=== PATIENT | female | born 1960 | race Two or more races ===

== ENCOUNTER 2017-10-29 17:07 | Outpatient (CLI) | payer OTHER ==
[~2017-10-29 17:07] MED LIST: AMLODIPINE BESYL5 MG PO; CATAFLAM50 MG PO; COZAAR100 MG PO; Cozaar PO; GILTUSS TR TAB1 EACH PO; GLIMEPIRIDE2 MG PO; GLIMEPIRIDE4 MG; GLIMEPIRIDE4 MG PO; HUMULIN 70/30 V10 ML SQ; HUMULIN 70100 UNIT/2 SUBCUTANEO; IBUPROFEN800 MG PO; METFORMIN HCL1000 MG PO; METFORMIN HCL850 MG; Mylicon 125MG PO; NORVASC PO; NeurRONTin 400MG CAP PO; SEPTRA DS TABLE1 TAB; SYNTHROID75 MCG; SYNTHROID75 MCG PO; Synthroid PO; TESSALON PERLE100 MG PO; ZITHROMAX500 MG PO; ZOCOR40 MG; ZOCOR40 MG PO
== END 2017-10-29 18:00 | disposition home or self-care (01) ==
LOC: PPHC 17:07
DX: C54.1 Malignant neoplasm of endometrium (principal)

== ENCOUNTER 2017-12-18 08:25 | Emergency (ER) | payer OTHER ==
[~2017-12-18] VITALS: Ht 160 cm; Wt 76.2 kg
== END 2017-12-18 12:42 | disposition home or self-care (01) ==
LOC: ER 08:25
DX: J11.1 Influenza due to unidentified influenza virus with other respiratory manifestations (principal)

== ENCOUNTER 2018-03-29 06:25 | Outpatient (CLI) | payer OTHER | END 2018-03-29 06:44 | disposition home or self-care (01) | LOC: LAB 06:25 | DX: C54.1 Malignant neoplasm of endometrium (principal); I10 Essential (primary) hypertension; E03.8 Other specified hypothyroidism; E11.9 Type 2 diabetes mellitus without complications ==

== ENCOUNTER 2018-06-07 08:21 | Outpatient (CLI) | payer OTHER | END 2018-06-07 08:30 | disposition home or self-care (01) | LOC: LAB 08:21 | DX: C54.1 Malignant neoplasm of endometrium (principal); Z51.81 Encounter for therapeutic drug level monitoring ==

== ENCOUNTER 2018-06-07 09:15 | Outpatient (CLI) | payer OTHER | END 2018-06-07 16:09 | disposition home or self-care (01) | LOC: TOM 09:15 | DX: C54.1 Malignant neoplasm of endometrium (principal) ==

== ENCOUNTER 2018-08-05 08:06 | Outpatient (CLI) | payer OTHER | END 2018-08-05 08:23 | disposition home or self-care (01) | LOC: MAMO-SONO 08:06 | DX: Z12.31 Encounter for screening mammogram for malignant neoplasm of breast (principal); N64.59 Other signs and symptoms in breast; N64.89 Other specified disorders of breast ==

== ENCOUNTER → 2019-09-09 07:10 | Outpatient (CLI) | payer OTHER | END | disposition home or self-care (01) | LOC: LAB 07:10 | DX: R10.84 Generalized abdominal pain (principal); E78.49 Other hyperlipidemia; E11.9 Type 2 diabetes mellitus without complications; Z00.00 Encounter for general adult medical examination without abnormal findings; E55.9 Vitamin D deficiency, unspecified; E03.8 Other specified hypothyroidism ==

== ENCOUNTER → 2021-05-01 13:19 | Outpatient (CLI) | payer OTHER | END | disposition home or self-care (01) | LOC: NUCLEAR 13:00 → EDBD 13:19 → NUCLEAR 13:19 | PROVIDERS: ATTEND Internal Medicine Cardiovascular Disease | DX: M81.0 Age-related osteoporosis without current pathological fracture (principal); E55.9 Vitamin D deficiency, unspecified ==

== ENCOUNTER 2022-08-17 12:39 | Outpatient (CLI) | payer OTHER ==
[~2022-08-17 12:39] MED LIST changes: +AMLODIPINE-OLM1 EAC1; +CAPSAICIN42.5 GM TOP; +CIPRO500 MG PO; +COZAAR25 MG; +COZAAR50 MG; +GLIPIZIDE ER5 MG PO; +METFORMIN HCL1000 M2 PO; +NOVOLIN 70100 UNIT/2; +PLAVIX75 MG PO; +ZOVIRAX800 MG PO
== END 2022-08-17 12:44 | disposition home or self-care (01) ==
LOC: NUCLEAR 12:39
PROVIDERS: ATTEND Internal Medicine Endocrinology, Diabetes & Metabolism
DX: Z13.820 Encounter for screening for osteoporosis (principal); M85.89 Other specified disorders of bone density and structure, multiple sites

== ENCOUNTER 2022-08-21 08:37 | Outpatient (CLI) | payer OTHER | END 2022-08-21 08:38 | disposition home or self-care (01) | LOC: LAB 08:37 | PROVIDERS: ATTEND Internal Medicine Endocrinology, Diabetes & Metabolism | DX: D64.9 Anemia, unspecified (principal); E03.8 Other specified hypothyroidism; E06.3 Autoimmune thyroiditis; E78.2 Mixed hyperlipidemia; M85.89 Other specified disorders of bone density and structure, multiple sites; M81.0 Age-related osteoporosis without current pathological fracture; E55.9 Vitamin D deficiency, unspecified; E11.65 Type 2 diabetes mellitus with hyperglycemia; E11.22 Type 2 diabetes mellitus with diabetic chronic kidney disease; D64.3 Other sideroblastic anemias; R94.5 Abnormal results of liver function studies; E83.52 Hypercalcemia ==

== ENCOUNTER → 2022-11-27 07:52 | Outpatient (CLI) | payer OTHER | END | disposition home or self-care (01) | LOC: LAB 07:52 | PROVIDERS: ATTEND Internal Medicine Endocrinology, Diabetes & Metabolism | DX: E03.8 Other specified hypothyroidism (principal); E78.2 Mixed hyperlipidemia; R73.01 Impaired fasting glucose; R80.9 Proteinuria, unspecified ==

== ENCOUNTER 2022-12-04 09:29 | Outpatient (CLI) | payer OTHER | END 2022-12-04 09:31 | disposition home or self-care (01) | LOC: NUCLEAR 09:29 | PROVIDERS: ATTEND Internal Medicine | DX: I11.9 Hypertensive heart disease without heart failure (principal); I70.213 Atherosclerosis of native arteries of extremities with intermittent claudication, bilateral legs; E78.5 Hyperlipidemia, unspecified; E11.51 Type 2 diabetes mellitus with diabetic peripheral angiopathy without gangrene; I87.2 Venous insufficiency (chronic) (peripheral) ==

== ENCOUNTER → 2023-01-07 07:06 | Outpatient (CLI) | payer OTHER | END | disposition home or self-care (01) | LOC: LAB 07:06 | PROVIDERS: ATTEND Internal Medicine | DX: I73.9 Peripheral vascular disease, unspecified (principal); I11.9 Hypertensive heart disease without heart failure; I10 Essential (primary) hypertension; E78.5 Hyperlipidemia, unspecified; E11.51 Type 2 diabetes mellitus with diabetic peripheral angiopathy without gangrene; I87.2 Venous insufficiency (chronic) (peripheral) ==

== ENCOUNTER 2023-03-05 09:00 | Outpatient (CLI) | payer OTHER | END 2023-03-05 09:03 | disposition home or self-care (01) | LOC: SONOGRAMA 09:00 | PROVIDERS: ATTEND Podiatrist Foot Surgery | DX: M72.2 Plantar fascial fibromatosis (principal) ==

== ENCOUNTER 2023-03-08 07:39 | Outpatient (CLI) | payer OTHER | END 2023-03-08 07:44 | disposition home or self-care (01) | LOC: LAB 07:39 | PROVIDERS: ATTEND Podiatrist Foot Surgery | DX: K76.9 Liver disease, unspecified (principal) ==

== ENCOUNTER → 2024-03-22 11:34 | Outpatient (CLI) | payer OTHER ==
[2024-03-22 12:46] LABS: HEMATOCRIT 43.3 % (36.0-45.00); HEMOGLOBIN 14.4 g/dL (12.0-15.00); MEAN CELL VOLUME 83.5 fL (80.00-100.00); MEAN CORPUSCULAR HEMOGLOBIN 27.8 pg (27.00-32.0); MEAN CORPUSCULAR HGB CONC 33.3 g/dl (32.0-36.0); PLATELET COUNT 228 K/uL (150-450); RED BLOOD COUNT 5.18 M/uL (4.00-6.00); RED CELL DISTRIBUTION WIDTH 15.3 % (11.5-14.5)
[2024-03-22 13:21] LABS: MYCOPLASMA PNEUMONIAE IGM NON REACTIVE (NO REACTIVE)
== END | disposition home or self-care (01) ==
LOC: LAB 11:34
PROVIDERS: ATTEND Internal Medicine Cardiovascular Disease
DX: J11.1 Influenza due to unidentified influenza virus with other respiratory manifestations (principal); A49.3 Mycoplasma infection, unspecified site; Z20.822 Contact with and (suspected) exposure to COVID-19